=== PATIENT | male | born 1975 | race Caucasian/White ===

== ENCOUNTER 2016-12-30 12:27 | Emergency (ER) | payer BC ==
[2016-12-30] MEDS ORDERED: ASPIRIN 81 MG TABLET, CHEWABLE PO ONE (12:49)
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
[2016-12-30 13:16] LABS: ABSOLUTE BASOPHILS # (AUTO) 0.1 10^3/uL (0.0-0.2); ABSOLUTE EOSINOPHILS # (AUTO) 0.1 10^3/uL (0.0-0.6); ABSOLUTE LYMPHOCYTES (AUTO) 2.7 10^3/uL (0.5-4.7); ABSOLUTE MONOCYTES (AUTO) 1.2 10^3/uL (0.1-1.4); ABSOLUTE NEUT (AUTO) 5.8 10^3/uL (1.7-8.2); BASOPHILS % (AUTO) 0.6 % (0-2); EOSINOPHILS % (AUTO) 0.6 % (0-6); HEMATOCRIT 46.6 % (37.9-51.0); HGB HCT DIFFERENCE 1.4; LYMPHOCYTES % (AUTO) 27.2 % (13-45); MEAN CORPUSCULAR HEMOGLOBIN 32.5 pg (27.0-33.4); MEAN CORPUSCULAR HGB CONC 34.3 g/dL (32.0-36.0); MEAN CORPUSCULAR VOLUME 95 fl (80-97); MONOCYTES % (AUTO) 12.5 % (3-13); RED BLOOD COUNT 4.93 10^6/uL (4.35-5.55); RED CELL DISTRIBUTION WIDTH 13.5 % (11.5-14.0); SEGMENTED NEUTROPHILS % (AUTO) 59.1 % (42-78); WHITE BLOOD COUNT 9.9 10^3/uL (4.0-10.5)
[2016-12-30 13:21] LABS: PROTHROMBIN TIME 12.2 SEC (11.4-15.4)
[2016-12-30 13:35] LABS: ALANINE AMINOTRANSFERASE 93 U/L (21-72); ALBUMIN 4.5 g/dL (3.5-5.0); ALKALINE PHOSPHATASE 91 U/L (38-126); ANION GAP 12 (5-19); ASPARTATE AMINO TRANSFERASE 51 U/L (17-59); BILIRUBIN,DIRECT 0.4 mg/dL (0.0-0.4); BILIRUBIN,TOTAL 0.6 mg/dL (0.2-1.3); BLOOD UREA NITROGEN 9 mg/dL (7-20); CALCIUM 10.3 mg/dL (8.4-10.2); CARBON DIOXIDE 26 mmol/L (22-30); CHLORIDE 100 mmol/L (98-107); CREATINE KINASE 233 U/L (55-170); CREATININE RESULT 0.83 mg/dL (0.52-1.25); GLUCOSE 173 mg/dL (75-110); LIPASE 76.6 U/L (23-300); MAGNESIUM 1.9 mg/dL (1.6-2.3); POTASSIUM 4.6 mmol/L (3.6-5.0); SODIUM 137.9 mmol/L (137-145); TOTAL PROTEIN 7.1 g/dL (6.3-8.2)
[2016-12-30] MEDS ORDERED: LORAZEPAM 1 MG TABLET PO ONE (13:40)
[2016-12-30 13:53] LABS: CREATINE KINASE MB 1.63 ng/mL (<4.55)
[2016-12-30 13:55] LABS: TROPONIN I < 0.012 ng/mL
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
[2016-12-30 15:13] VITALS: BP 149/100
--- NOTE | 2016-12-30 21:34 | EKG REPORT ---
SEVERITY:- OTHERWISE NORMAL ECG - SINUS TACHYCARDIA : Confirmed by: Nabil Carpio 30-Dec-2016 21:34:02
== END 2016-12-30 15:11 | disposition home or self-care (01) ==
LOC: ER 12:27
DX: F41.9 Anxiety disorder, unspecified (principal); R06.02 Shortness of breath; R00.0 Tachycardia, unspecified; I10 Essential (primary) hypertension
CPT/HCPCS: 36415; 71020; 80053; 82550; 82553; 83690; 83735; 84484; 85025; 85379; 85610; 93005; 93010; 99285

== ENCOUNTER 2018-08-27 07:37 | Inpatient (IN) | payer BC ==
[2018-08-27] MEDS ORDERED: MORPHINE SULFATE 10 MG/ML INJ IV ONE (07:42)
[2018-08-27] MEDS ORDERED: NORMAL SALINE 1000 ML 1,000 ML IV ONE ×2 (07:47→09:34)
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
[2018-08-27] MEDS ORDERED: FENTANYL CITRATE INJ/PF 100 MCG/2 ML AMPUL IV ONE (08:49)
[2018-08-27] MEDS ORDERED: KETOROLAC TROMETHAMINE INJ/PF 30 MG/1 ML SDV IV ONE (08:49)
--- NOTE | 2018-08-27 08:58 | RADIOLOGY REPORT (SQ) ---
EXAM DESCRIPTION: CHEST 2 VIEWS COMPLETED DATE/TIME: 08/27/2018 8:45 am REASON FOR STUDY: LUQ/epigastric pain COMPARISON: 12/30/2016 EXAM PARAMETERS: NUMBER OF VIEWS: two views TECHNIQUE: Digital Frontal and Lateral radiographic views of the chest acquired. RADIATION DOSE: NA LIMITATIONS: none FINDINGS: LUNGS AND PLEURA: There is increased bandlike atelectasis or scarring of the right middle lobe and volume loss. MEDIASTINUM AND HILAR STRUCTURES: No masses or contour abnormalities. HEART AND VASCULAR STRUCTURES: Heart normal size. No evidence for failure. BONES: No acute findings. HARDWARE: None in the chest. OTHER: No other significant finding. IMPRESSION: There is increased bandlike atelectasis or scarring of the right middle and associated v olume loss. There is no definite airspace opacity. TECHNICAL DOCUMENTATION: JOB ID: [id number] [employer]- All Rights Reserved Reading location - IP/workstation name: [email or web address]
[2018-08-27 09:41] LABS: APPEARANCE,URINE CLEAR; BILIRUBIN,URINE NEGATIVE (NEGATIVE); COLOR,URINE YELLOW; GLUCOSE, URINE >=500 mg/dL (NEGATIVE); KETONES,URINE 20 mg/dL (NEGATIVE); LEUKOCYTE ESTERASE,URINE NEGATIVE (NEGATIVE); NITRITE,URINE NEGATIVE (NEGATIVE); PROTEIN,URINE NEGATIVE (NEGATIVE); URINE SPECIFIC GRAVITY 1.025; UROBILINOGEN,URINE NEGATIVE mg/dL (<2.0)
[2018-08-27] MEDS ORDERED: HYDROMORPHONE HCL INJ/PF 2 MG/ML AMPULE IV ONE ×2 (11:33→14:59)
[2018-08-27 11:59] LABS: ALANINE AMINOTRANSFERASE 36 U/L (21-72); ALBUMIN 3.8 g/dL (3.5-5.0); ALKALINE PHOSPHATASE 62 U/L (38-126); ANION GAP 11 (5-19); ASPARTATE AMINO TRANSFERASE 25 U/L (17-59); BILIRUBIN,DIRECT 0.4 mg/dL (0.0-0.4); BLOOD UREA NITROGEN 9 mg/dL (7-20); CALCIUM 8.9 mg/dL (8.4-10.2); CARBON DIOXIDE 24 mmol/L (22-30); CHLORIDE 96 mmol/L (98-107); CREATINE KINASE 143 U/L (55-170); GLUCOSE 263 mg/dL (75-110); POTASSIUM 4.5 mmol/L (3.6-5.0); SODIUM 130.6 mmol/L (137-145); TOTAL PROTEIN 5.9 g/dL (6.3-8.2)
[2018-08-27 12:11] LABS: LIPASE 2003.9 U/L (23-300)
[2018-08-27 12:20] LABS: ABSOLUTE LYMPHOCYTES (AUTO) 1.8 10^3/uL (0.5-4.7); ABSOLUTE MONOCYTES (AUTO) 1.3 10^3/uL (0.1-1.4); BASOPHILS % (AUTO) 0.4 % (0-2); EOSINOPHILS % (AUTO) 0.2 % (0-6); HEMATOCRIT 50.3 % (37.9-51.0); HEMOGLOBIN 17.9 g/dL (13.5-17.0); LYMPHOCYTES % (AUTO) 19.5 % (13-45); MEAN CORPUSCULAR HEMOGLOBIN 34.3 pg (27.0-33.4); MEAN CORPUSCULAR HGB CONC 35.6 g/dL (32.0-36.0); MEAN CORPUSCULAR VOLUME 96 fl (80-97); MONOCYTES % (AUTO) 13.9 % (3-13); PLATELET COUNT 188 10^3/uL (150-450); RED BLOOD COUNT 5.22 10^6/uL (4.35-5.55); RED CELL DISTRIBUTION WIDTH 13.4 % (11.5-14.0); TOTAL CELLS COUNTED % (AUTO) 100 %; WHITE BLOOD COUNT 9.1 10^3/uL (4.0-10.5)
[2018-08-27 12:25] LABS: CREATINE KINASE MB 0.53 ng/mL (<4.55)
[2018-08-27 12:27] LABS: TROPONIN I < 0.012 ng/mL
--- NOTE | 2018-08-27 12:59 | RADIOLOGY REPORT (SQ) ---
EXAM DESCRIPTION: CT ABD/PELVIS WITH IV ORAL COMPLETED DATE/TIME: 08/27/2018 12:34 pm REASON FOR STUDY: abd flank pain/ hx of bowel obstruction COMPARISON: CT abdomen pelvis, 10/02/2014 TECHNIQUE: CT scan of the abdomen and pelvis performed using helical scanning technique with dynamic intravenous contrast injection. No oral contrast. Images reviewed with lung, soft tissue, and bone windows. Reconstructed coronal and sagittal MPR images reviewed. Delayed images for evaluation of the urinary system also acquired. All images stored on PACS. All CT scanners at this facility use dose modulation, iterative reconstruction, and/or weight based d osing when appropriate to reduce radiation dose to as low as reasonably achievable (ALARA). [facility]: Dose Right [facility]: CareDose [facility]: Dose Right [facility]: Teradose 4D [facility]: [facility] CONTRAST TYPE AND DOSE: contrast/concentration: Isovue 350.00 mg/ml; Total Contrast Delivered: 100.0 ml; Total Saline Delivered: 43.7 ml RENAL FUNCTION: None required. The patient is less than 50 years old. RADIATION DOSE: CT Rad equipment meets quality standard of care and radiation dose reduction techniq ues were employed. CTDIvol: 19.9 - 21.0 mGy. DLP: 2380 mGy-cm.. LIMITATIONS: None. FINDINGS: LOWER CHEST: No significant findings. Bibasilar atelectasis. LIVER: There is heterogeneous hypodensity of the lateral right lobe of the liver. SPLEEN: Surgically absent. PANCREAS: There is significant inflammation and fat stranding about the pancreatic body and tail. GALLBLADDER: Gallstones. No inflammatory changes to suggest cholecystitis. ADRENAL GLANDS: No significant masses or asymmetry. RIGHT KIDNEY AND URETER: No solid masses. No significant calcifications. No hydronephrosis or hyd roureter. LEFT KIDNEY AND URETER: No solid masses. No significant calcifications. No hydronephrosis or hydr oureter. AORTA AND VESSELS: No aneurysm. No dissection. Renal arteries, SMA, celiac without stenosis. RETROPERITONEUM: No retroperitoneal adenopathy, hemorrhage or masses. BOWEL AND PERITONEAL CAVITY: No masses or inflammatory changes. No free fluid or peritoneal masses. Status post rectosigmoid resection with evidence of prior left lower quadrant ostomy. APPENDIX: Normal. PELVIS: No mass. No free fluid. Normal bladder. ABDOMINAL WALL: No masses. No hernias. BONES: No significant or acute findings. OTHER: No other significant finding. IMPRESSION: 1. There is significant inflammation and fat stranding about the pancreatic body and ginny l, consistent with acute pancreatitis. No evidence of discrete pancreatic fluid collection or pancre atic necrosis on this non tailored examination. 2. Cholelithiasis. 3. There is heterogeneous hypodensity of the lateral right lobe of the liver, of uncertain nature. U nderlying mass is not excluded. Consider multiphasic liver protocol MRI to further evaluate. 4. Postoperative findings of prior rectosigmoid resection with evidence of prior left lower quadrant ostomy. TECHNICAL DOCUMENTATION: JOB ID: [id number] Quality ID # [id number]: Final reports with documentation of one or more dose reduction techniques (e.g., Au tomated exposure control, adjustment of the mA and/or kV according to patient size, use of iterative reconstruction technique) 2010 [employer]- All Rights Reserved Reading location - IP/workstation name: [email or web address]
--- NOTE | 2018-08-27 13:39 | EKG REPORT ---
SEVERITY:- BORDERLINE ECG - SINUS TACHYCARDIA BORDERLINE T ABNORMALITIES, INFERIOR LEADS : Confirmed by: Judi Montenegro MD 27-Aug-2018 13:38:33
[2018-08-27] MEDS ORDERED: NORMAL SALINE 1000 ML 1,000 ML IV PRN (14:27)
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
[2018-08-27] MEDS ORDERED: ONDANSETRON HCL INJ/PF 4 MG/2 ML SDV IV PRN (15:05)
[2018-08-27] MEDS ORDERED: ENOXAPARIN SODIUM INJ 40 MG/0.4 ML DISP.SYRIN SUBCUT ONE (17:00)
[2018-08-27] MEDS: MORPHINE SULFATE 10 MG/ML INJ IV PRN ×2 (18:20→23:53)
[2018-08-27] MEDS ORDERED: LORAZEPAM INJ 2 MG/1 ML VIAL IV ONE ×2 (19:47)
[2018-08-27] MEDS ORDERED: LORAZEPAM INJ 2 MG/1 ML VIAL IV PRN (19:48)
[2018-08-27] MEDS: NORMAL SALINE 1000 ML 1,000 ML IV PRN (21:37)
[2018-08-27 23:03] LABS: URINE AMPHETAMINES SCREEN NEGATIVE; URINE BARBITURATES SCREEN NEGATIVE; URINE COCAINE SCREEN NEGATIVE; URINE MARIJUANA (THC) SCREEN NEGATIVE; URINE METHADONE SCREEN NEGATIVE; URINE PHENCYCLIDINE SCREEN NEGATIVE
[2018-08-27 23:07] LABS: URINE BENZODIAZEPINES SCREEN UNCONFIRMED POSITIVE
[2018-08-27] MEDS: THIAMINE HCL 100 MG, FOLIC ACID 1 MG in NORMAL SALINE 250 ML IV SCH (23:12)
[2018-08-28] MEDS: MORPHINE SULFATE 10 MG/ML INJ IV PRN ×5 (04:17→21:03)
[2018-08-28] MEDS: ACETAMINOPHEN 325 MG TABLET PO PRN ×2 (06:17→15:40)
[2018-08-28] MEDS: NORMAL SALINE 1000 ML 1,000 ML IV PRN ×3 (06:19→18:19)
[2018-08-28 06:25] LABS: ABSOLUTE BASOPHILS # (AUTO) 0.1 10^3/uL (0.0-0.2); ABSOLUTE LYMPHOCYTES (AUTO) 1.6 10^3/uL (0.5-4.7); ABSOLUTE NEUT (AUTO) 8.7 10^3/uL (1.7-8.2); BASOPHILS % (AUTO) 0.5 % (0-2); EOSINOPHILS % (AUTO) 0.3 % (0-6); HEMATOCRIT 50.2 % (37.9-51.0); HEMOGLOBIN 17.5 g/dL (13.5-17.0); LYMPHOCYTES % (AUTO) 12.8 % (13-45); MEAN CORPUSCULAR HEMOGLOBIN 33.8 pg (27.0-33.4); MEAN CORPUSCULAR HGB CONC 34.8 g/dL (32.0-36.0); MEAN CORPUSCULAR VOLUME 97 fl (80-97); MONOCYTES % (AUTO) 16.3 % (3-13); PLATELET COUNT 175 10^3/uL (150-450); RED BLOOD COUNT 5.17 10^6/uL (4.35-5.55); RED CELL DISTRIBUTION WIDTH 14.1 % (11.5-14.0); SEGMENTED NEUTROPHILS % (AUTO) 70.1 % (42-78); TOTAL CELLS COUNTED % (AUTO) 100 %; WHITE BLOOD COUNT 12.4 10^3/uL (4.0-10.5)
[2018-08-28 06:45] LABS: ALANINE AMINOTRANSFERASE 27 U/L (21-72); ALBUMIN 3.4 g/dL (3.5-5.0); ALKALINE PHOSPHATASE 57 U/L (38-126); ANION GAP 9 (5-19); ASPARTATE AMINO TRANSFERASE 24 U/L (17-59); BILIRUBIN,DIRECT 0.7 mg/dL (0.0-0.4); BILIRUBIN,TOTAL 2.7 mg/dL (0.2-1.3); BLOOD UREA NITROGEN 9 mg/dL (7-20); CALCIUM 8.4 mg/dL (8.4-10.2); CARBON DIOXIDE 21 mmol/L (22-30); CHLORIDE 104 mmol/L (98-107); GLUCOSE 230 mg/dL (75-110); POTASSIUM 4.3 mmol/L (3.6-5.0); SODIUM 133.7 mmol/L (137-145); TOTAL PROTEIN 5.5 g/dL (6.3-8.2)
[2018-08-28 09:12] LABS: ARTERIAL BLOOD BASE EXCESS 0.7 mmol/L; ARTERIAL BLOOD H2CO3 1.16 mmol/L (1.05-1.35); ARTERIAL BLOOD HCO3 24.8 mmol/L (20-24); ARTERIAL BLOOD O2 SATURATION 91.6 % (94-98); ARTERIAL BLOOD PCO2 38.4 mmHg (35-45); ARTERIAL BLOOD PH 7.43 (7.35-7.45); ARTERIAL BLOOD PO2 59.6 mmHg (80-100)
[2018-08-28 09:14] LABS: ARTERIAL BLOOD FIO2 2L
[2018-08-28] MEDS: ENOXAPARIN SODIUM INJ 40 MG/0.4 ML DISP.SYRIN SUBCUT SCH (09:47)
[2018-08-28] MEDS: DIAZEPAM 5 MG TABLET PO SCH ×3 (09:48→21:03)
--- NOTE | 2018-08-28 13:26 | PDOC PROGRESS REPORT ---
Subjective Progress Note for:: 08/28/18 Subjective:: This is a 42 years old male patient presented with chief complaint of epigastric and right upper quadrant pain. His blood work shows at admission markedly elevated lipase of 2000 and mildly elevated liver chemistries. Patient has been managed with aggressive hydration, bowel rest and pain control. Yesterday night he had an episode of low-grade fever of 101.8 and this morning his white cell count is mildly elevated to 12.4. His lipase trended down to 642. His liver enzymes also trending down. I consulted Dr. Obando to evaluate this patient since he has cholelithiasis which may contribute to his pancreatitis. Reason For Visit: ACUTE ON CHRONIC PANCREATITIS Physical Exam Vital Signs: Temp Pulse Resp BP Pulse Ox 99.2 F 104 H 18 137/76 H 93 08/28/18 07:23 08/28/18 07:58 08/28/18 07:23 08/28/18 07:23 08/28/18 07:23 Intake & Output 08/27/18 08/28/18 08/29/18 06:59 06:59 06:59 Intake Total 4061.2 1000 Output Total 0 Balance 4061.2 1000 Weight 124.7 kg General appearance: PRESENT: no acute distress Eye exam: PRESENT: conjunctiva pink Mouth exam: PRESENT: dry mucosa Neck exam: ABSENT: carotid bruit, JVD, lymphadenopathy, thyromegaly Respiratory exam: PRESENT: clear to auscultation ayesha. ABSENT: rales, rhonchi, wheezes Cardiovascular exam: PRESENT: RRR. ABSENT: diastolic murmur, rubs, systolic murmur GI/Abdominal exam: PRESENT: normal bowel sounds, soft. ABSENT: distended, guarding, mass, organolmegaly, rebound, tenderness Neurological exam: PRESENT: alert, awake, oriented to time, oriented to situation Results Laboratory Results: 08/28/18 06:15 08/28/18 06:15 08/27/18 08/28/18 08/28/18 15:55 06:15 06:15 WBC 12.4 H RBC 5.17 Hgb 17.5 H Hct 50.2 MCV 97 MCH 33.8 H MCHC 34.8 RDW 14.1 H Plt Count 175 Seg Neutrophils % 70.1 Lymphocytes % 12.8 L Monocytes % 16.3 H Eosinophils % 0.3 Basophils % 0.5 Absolute Neutrophils 8.7 H Absolute Lymphocytes 1.6 Absolute Monocytes 2.0 H Absolute Eosinophils 0.0 Absolute Basophils 0.1 Carbonic Acid HCO3/H2CO3 Ratio ABG pH ABG pCO2 ABG pO2 ABG HCO3 ABG O2 Saturation ABG Base Excess FiO2 Sodium 133.7 L Potassium 4.3 Chloride 104 Carbon Dioxide 21 L Anion Gap 9 BUN 9 Creatinine 0.68 Est GFR ( Amer) > 60 Est GFR (Non-Af Amer) > 60 Glucose 230 H Lactic Acid 1.3 Calcium 8.4 Total Bilirubin 2.7 H AST 24 ALT 27 Alkaline Phosphatase 57 Total Protein 5.5 L Albumin 3.4 L Lipase 642.0 H 08/28/18 08:54 WBC RBC Hgb Hct MCV MCH MCHC RDW Plt Count Seg Neutrophils % Lymphocytes % Monocytes % Eosinophils % Basophils % Absolute Neutrophils Absolute Lymphocytes Absolute Monocytes Absolute Eosinophils Absolute Basophils Carbonic Acid 1.16 HCO3/H2CO3 Ratio 21:1 ABG pH 7.43 ABG pCO2 38.4 ABG pO2 59.6 L ABG HCO3 24.8 H ABG O2 Saturation 91.6 L ABG Base Excess 0.7 FiO2 2L Sodium Potassium Chloride Carbon Dioxide Anion Gap BUN Creatinine Est GFR ( Amer) Est GFR (Non-Af Amer) Glucose Lactic Acid Calcium Total Bilirubin AST ALT Alkaline Phosphatase Total Protein Albumin Lipase 08/27/18 08/27/18 08/27/18 08:10 08:10 11:00 Creatine Kinase Cancelled 143 CK-MB (CK-2) Cancelled Troponin I Cancelled 08/27/18 08/27/18 11:10 11:59 Creatine Kinase CK-MB (CK-2) 0.53 Troponin I < 0.012 Cancelled Impressions: Abdomen/Pelvis CT 08/27/18 00:00 IMPRESSION: 1. There is significant inflammation and fat stranding about the pancreatic body and tail, consistent with acute pancreatitis. No evidence of discrete pancreatic fluid collection or pancreatic necrosis on this non tailored examination. 2. Cholelithiasis. 3. There is heterogeneous hypodensity of the lateral right lobe of the liver, of uncertain nature. Underlying mass is not excluded. Consider multiphasic liver protocol MRI to further evaluate. 4. Postoperative findings of prior rectosigmoid resection with evidence of prior left lower quadrant ostomy. Chest X-Ray 08/27/18 08:09 IMPRESSION: There is increased bandlike atelectasis or scarring of the right middle and associated volume loss. There is no definite airspace opacity. Assessment & Plan - Diagnosis (1) Acute on chronic pancreatitis Is this a current diagnosis for this admission?: Yes Plan: Alcohol induced. We will keep the patient n.p.o. and hydrate him aggressively. Pain controlled with morphine sulfate. Patient strongly advised to avoid alcohol. (2) Obstructive sleep apnea Is this a current diagnosis for this admission?: Yes Plan: Repeat on CPAP at night. (3) Hypertension Qualifiers: Hypertension type: essential hypertension Qualified Code(s): I10 - Essential (primary) hypertension Is this a current diagnosis for this admission?: Yes Plan: Continue home medications. (4) Severe obesity (BMI 35.0-39.9) with comorbidity Is this a current diagnosis for this admission?: Yes Plan: Patient advised to do lifestyle modification. (5) Cholelithiasis Is this a current diagnosis for this admission?: Yes Plan: Dr. Obando consulted.
[2018-08-28] MEDS ORDERED: ONDANSETRON HCL INJ/PF 4 MG/2 ML SDV IV PRN (14:30)
--- NOTE | 2018-08-28 15:43 | RADIOLOGY REPORT (SQ) ---
EXAM DESCRIPTION: U/S ABDOMEN COMPLETE W/O DOP COMPLETED DATE/TIME: 08/28/2018 3:22 pm REASON FOR STUDY: Cholelithiasis/pancreatitis COMPARISON: 08/27/2018 TECHNIQUE: Dynamic and static grayscale images acquired of the abdomen and recorded on PACS. Teenao elizabeth selected color Doppler and spectral images recorded. Note: Study does not meet criteria for complete doppler/duplex scan LIMITATIONS: Limited exam secondary to body habitus. . FINDINGS: PANCREAS: Not visualized. LIVER: Not well visualized. Heterogeneous echotexture. LIVER VASCULATURE: Normal directional flow of the main portal vein and hepatic veins. GALLBLADDER: Cholelithiasis. Normal wall thickness. No pericholecystic fluid. ULTRASOUND-DETECTED FLANAGAN'S SIGN: Negative. INTRAHEPATIC DUCTS AND COMMON DUCT: CBD and intrahepatic ducts normal caliber. No filling defects. INFERIOR VENA CAVA: Not visualized. AORTA: Not visualized. RIGHT KIDNEY: Normal in size measuring 14.2 cm. Normal echogenicity. No solid or suspicious mass es. No hydronephrosis. No calcifications. LEFT KIDNEY: Normal in size measuring 14.2 cm. Normal echogenicity. No solid or suspicious kuldeep s. No hydronephrosis. No calcifications. SPLEEN: Surgically absent. PERITONEAL AND PLEURAL SPACES: No ascites or effusions. OTHER: No other significant finding. IMPRESSION: Limited exam secondary to body habitus and bowel gas. Cholelithiasis without evidence of acute cholecystitis. TECHNICAL DOCUMENTATION: JOB ID: [id number] [employer]- All Rights Reserved Reading location - IP/workstation name: [email or web address]
[2018-08-28] MEDS: PIPERACILLIN SODIUM/TAZOBACTAM 3.375 GM in NORMAL SALINE 100 ML IV SCH ×2 (15:54→21:03)
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
[2018-08-28] MEDS ORDERED: NORMAL SALINE 1000 ML 1,000 ML IV ONE (16:15)
[2018-08-28] MEDS: THIAMINE HCL 100 MG, FOLIC ACID 1 MG in NORMAL SALINE 250 ML IV SCH (22:24)
[2018-08-29] MEDS: NORMAL SALINE 1000 ML 1,000 ML IV PRN ×4 (01:06→18:35)
[2018-08-29] MEDS: MORPHINE SULFATE 10 MG/ML INJ IV PRN ×6 (01:06→21:32)
[2018-08-29] MEDS: PIPERACILLIN SODIUM/TAZOBACTAM 3.375 GM in NORMAL SALINE 100 ML IV SCH ×4 (03:14→21:31)
[2018-08-29] MEDS: DIAZEPAM 5 MG TABLET PO SCH ×4 (03:15→21:32)
[2018-08-29 06:35] LABS: HEMATOCRIT 45.1 % (37.9-51.0); HEMOGLOBIN 15.6 g/dL (13.5-17.0); MEAN CORPUSCULAR HEMOGLOBIN 33.8 pg (27.0-33.4); MEAN CORPUSCULAR HGB CONC 34.5 g/dL (32.0-36.0); MEAN CORPUSCULAR VOLUME 98 fl (80-97); PLATELET COUNT 155 10^3/uL (150-450); RED CELL DISTRIBUTION WIDTH 13.8 % (11.5-14.0); WHITE BLOOD COUNT 10.8 10^3/uL (4.0-10.5)
[2018-08-29 06:42] LABS: ANION GAP 10 (5-19); BLOOD UREA NITROGEN 9 mg/dL (7-20); CARBON DIOXIDE 21 mmol/L (22-30); CHLORIDE 108 mmol/L (98-107); GLUCOSE 179 mg/dL (75-110)
[2018-08-29 07:26] LABS: ABSOLUTE LYMPHOCYTES# (MANUAL) 1.7 10^3/uL (0.5-4.7); ABSOLUTE MONOCYTES # (MANUAL) 2.7 10^3/uL (0.1-1.4); ABSOLUTE NEUTROPHILS# (MANUAL) 6.4 10^3/uL (1.7-8.2); BAND NEUTROPHILS % (MANUAL) 1 % (3-5); BASOPHILS % (MANUAL) 0 % (0-2); EOSINOPHILS % (MANUAL) 0 % (0-6); LYMPHOCYTES % (MANUAL) 16 % (13-45); SEGMENTED NEUTROPHILS % (MAN) 58 % (42-78); TOTAL CELLS COUNTED 100
[2018-08-29 07:27] LABS: PLATELET COMMENT ADEQUATE; RBC MORPHOLOGY COMMENT NORMO-CYTIC/CHROMIC
[2018-08-29] MEDS: ENOXAPARIN SODIUM INJ 40 MG/0.4 ML DISP.SYRIN SUBCUT SCH (09:35)
--- NOTE | 2018-08-29 10:33 | PDOC PROGRESS REPORT ---
Subjective Progress Note for:: 08/29/18 Subjective:: feeling better, less abd pain Reason For Visit: ACUTE ON CHRONIC PANCREATITIS Physical Exam Vital Signs: Temp Pulse Resp BP Pulse Ox 99.0 F 102 H 24 H 144/85 H 96 08/29/18 08:12 08/29/18 08:12 08/29/18 08:12 08/29/18 08:12 08/29/18 08:12 Intake & Output 08/28/18 08/29/18 08/30/18 06:59 06:59 06:59 Intake Total 4061.2 5551.2 100 Output Total 0 2250 Balance 4061.2 3301.2 100 Weight 124.7 kg 126.2 kg GI/Abdominal exam: PRESENT: soft - abd soft, non tender Results Laboratory Results: 08/29/18 05:13 08/29/18 05:13 08/29/18 08/29/18 05:13 05:13 WBC 10.8 H RBC 4.60 Hgb 15.6 Hct 45.1 MCV 98 H MCH 33.8 H MCHC 34.5 RDW 13.8 Plt Count 155 Seg Neutrophils % Not Reportable Lymphocytes % Not Reportable Monocytes % Not Reportable Eosinophils % Not Reportable Basophils % Not Reportable Absolute Neutrophils Not Reportable Absolute Lymphocytes Not Reportable Absolute Monocytes Not Reportable Absolute Eosinophils Not Reportable Absolute Basophils Not Reportable Sodium 139.0 Potassium 4.0 Chloride 108 H Carbon Dioxide 21 L Anion Gap 10 BUN 9 Creatinine 0.73 Est GFR ( Amer) > 60 Est GFR (Non-Af Amer) > 60 Glucose 179 H Calcium 8.0 L Lipase 254.0 08/27/18 08/27/18 08/27/18 08:10 08:10 11:00 Creatine Kinase Cancelled 143 CK-MB (CK-2) Cancelled Troponin I Cancelled 08/27/18 08/27/18 11:10 11:59 Creatine Kinase CK-MB (CK-2) 0.53 Troponin I < 0.012 Cancelled Impressions: Abdomen/Pelvis CT 08/27/18 00:00 IMPRESSION: 1. There is significant inflammation and fat stranding about the pancreatic body and tail, consistent with acute pancreatitis. No evidence of discrete pancreatic fluid collection or pancreatic necrosis on this non tailored examination. 2. Cholelithiasis. 3. There is heterogeneous hypodensity of the lateral right lobe of the liver, of uncertain nature. Underlying mass is not excluded. Consider multiphasic liver protocol MRI to further evaluate. 4. Postoperative findings of prior rectosigmoid resection with evidence of prior left lower quadrant ostomy. Chest X-Ray 08/27/18 08:09 IMPRESSION: There is increased bandlike atelectasis or scarring of the right middle and associated volume loss. There is no definite airspace opacity. Abdomen Ultrasound 08/28/18 00:00 IMPRESSION: Limited exam secondary to body habitus and bowel gas. Cholelithiasis without evidence of acute cholecystitis. Assessment & Plan - Plan Summary Plan Summary: resolving pancreatitis pt started on clear liquids diet by primary physician surgery will cont to follow.
--- NOTE | 2018-08-29 12:32 | PDOC PROGRESS REPORT ---
Subjective Subjective:: I seen patient resting in bed. Today patient's more awake and alert and conversant. He reports this is abdominal pain is easing. His lipase trended down further from 642-254. His diet advanced to clear liquid. Reason For Visit: ACUTE ON CHRONIC PANCREATITIS Physical Exam Vital Signs: Temp Pulse Resp BP Pulse Ox 99.0 F 102 H 24 H 144/85 H 96 08/29/18 08:12 08/29/18 08:12 08/29/18 08:12 08/29/18 08:12 08/29/18 08:12 Intake & Output 08/28/18 08/29/18 08/30/18 06:59 06:59 06:59 Intake Total 4061.2 5551.2 100 Output Total 0 2250 Balance 4061.2 3301.2 100 Weight 124.7 kg 126.2 kg General appearance: PRESENT: no acute distress Head exam: PRESENT: atraumatic Eye exam: PRESENT: conjunctiva pink Mouth exam: PRESENT: moist Neck exam: ABSENT: carotid bruit, JVD, lymphadenopathy, thyromegaly Respiratory exam: PRESENT: clear to auscultation ayesha. ABSENT: rales, rhonchi, wheezes Cardiovascular exam: PRESENT: RRR. ABSENT: diastolic murmur, rubs, systolic murmur GI/Abdominal exam: PRESENT: tenderness Neurological exam: PRESENT: alert, awake, oriented to time, oriented to situation Results Laboratory Results: 08/29/18 05:13 08/29/18 05:13 08/29/18 08/29/18 05:13 05:13 WBC 10.8 H RBC 4.60 Hgb 15.6 Hct 45.1 MCV 98 H MCH 33.8 H MCHC 34.5 RDW 13.8 Plt Count 155 Seg Neutrophils % Not Reportable Lymphocytes % Not Reportable Monocytes % Not Reportable Eosinophils % Not Reportable Basophils % Not Reportable Absolute Neutrophils Not Reportable Absolute Lymphocytes Not Reportable Absolute Monocytes Not Reportable Absolute Eosinophils Not Reportable Absolute Basophils Not Reportable Sodium 139.0 Potassium 4.0 Chloride 108 H Carbon Dioxide 21 L Anion Gap 10 BUN 9 Creatinine 0.73 Est GFR ( Amer) > 60 Est GFR (Non-Af Amer) > 60 Glucose 179 H Calcium 8.0 L Lipase 254.0 08/27/18 08/27/18 08/27/18 08:10 08:10 11:00 Creatine Kinase Cancelled 143 CK-MB (CK-2) Cancelled Troponin I Cancelled 08/27/18 08/27/18 11:10 11:59 Creatine Kinase CK-MB (CK-2) 0.53 Troponin I < 0.012 Cancelled Impressions: Abdomen/Pelvis CT 08/27/18 00:00 IMPRESSION: 1. There is significant inflammation and fat stranding about the pancreatic body and tail, consistent with acute pancreatitis. No evidence of discrete pancreatic fluid collection or pancreatic necrosis on this non tailored examination. 2. Cholelithiasis. 3. There is heterogeneous hypodensity of the lateral right lobe of the liver, of uncertain nature. Underlying mass is not excluded. Consider multiphasic liver protocol MRI to further evaluate. 4. Postoperative findings of prior rectosigmoid resection with evidence of prior left lower quadrant ostomy. Chest X-Ray 08/27/18 08:09 IMPRESSION: There is increased bandlike atelectasis or scarring of the right middle and associated volume loss. There is no definite airspace opacity. Abdomen Ultrasound 08/28/18 00:00 IMPRESSION: Limited exam secondary to body habitus and bowel gas. Cholelithiasis without evidence of acute cholecystitis. Assessment & Plan - Diagnosis (1) Acute on chronic pancreatitis Is this a current diagnosis for this admission?: Yes Plan: Resolving. I will continue hydration and pain control. His diet advanced to clear liquid. (2) Obstructive sleep apnea Is this a current diagnosis for this admission?: Yes Plan: Repeat on CPAP at night. (3) Hypertension Qualifiers: Hypertension type: essential hypertension Qualified Code(s): I10 - Essent ial (primary) hypertension Is this a current diagnosis for this admission?: Yes Plan: Continue home medications. (4) Severe obesity (BMI 35.0-39.9) with comorbidity Is this a current diagnosis for this admission?: Yes Plan: Patient advised to do lifestyle modification. (5) Cholelithiasis Is this a current diagnosis for this admission?: Yes Plan: Dr. Obando consulted. (6) Uncontrolled diabetes mellitus Qualifiers: Diabetes mellitus type: type 2 Is this a current diagnosis for this admission?: Yes Plan: His hemoglobin A1c is 9.2. There might be an element of noncompliance. I will reinforced diabetic education.
[2018-08-29] MEDS: ACETAMINOPHEN 325 MG TABLET PO PRN (15:53)
[2018-08-29] MEDS: THIAMINE HCL 100 MG, FOLIC ACID 1 MG in NORMAL SALINE 250 ML IV SCH (22:34)
[2018-08-30] MEDS: NORMAL SALINE 1000 ML 1,000 ML IV PRN ×2 (01:19→06:51)
[2018-08-30] MEDS: MORPHINE SULFATE 10 MG/ML INJ IV PRN ×2 (01:19→06:51)
[2018-08-30] MEDS: PIPERACILLIN SODIUM/TAZOBACTAM 3.375 GM in NORMAL SALINE 100 ML IV SCH ×2 (02:57→10:41)
[2018-08-30] MEDS: DIAZEPAM 5 MG TABLET PO SCH ×2 (02:58→10:41)
[2018-08-30 05:21] LABS: HEMATOCRIT 45.3 % (37.9-51.0); HEMOGLOBIN 15.7 g/dL (13.5-17.0); MEAN CORPUSCULAR HEMOGLOBIN 33.9 pg (27.0-33.4); MEAN CORPUSCULAR HGB CONC 34.7 g/dL (32.0-36.0); MEAN CORPUSCULAR VOLUME 98 fl (80-97); PLATELET COUNT 195 10^3/uL (150-450); RED BLOOD COUNT 4.64 10^6/uL (4.35-5.55); RED CELL DISTRIBUTION WIDTH 13.9 % (11.5-14.0); WHITE BLOOD COUNT 5.5 10^3/uL (4.0-10.5)
[2018-08-30 05:39] LABS: ABSOLUTE LYMPHOCYTES# (MANUAL) 1.9 10^3/uL (0.5-4.7); ABSOLUTE MONOCYTES # (MANUAL) 1.2 10^3/uL (0.1-1.4); ABSOLUTE NEUTROPHILS# (MANUAL) 2.1 10^3/uL (1.7-8.2); BAND NEUTROPHILS % (MANUAL) 1 % (3-5); BASOPHILS % (MANUAL) 0 % (0-2); EOSINOPHILS % (MANUAL) 5 % (0-6); LYMPHOCYTES % (MANUAL) 29 % (13-45); MONOCYTES % (MANUAL) 22 % (3-13); SEGMENTED NEUTROPHILS % (MAN) 38 % (42-78); TOTAL CELLS COUNTED 100
[2018-08-30 05:41] LABS: PLATELET LARGE PRESENT; POLYCHROMASIA 1+
[2018-08-30 05:42] LABS: PLATELET COMMENT ADEQUATE
[2018-08-30 10:09] LABS: MONOCYTES % (MANUAL) 25 % (3-13)
--- NOTE | 2018-08-30 10:34 | PDOC DISCHARGE SUMMARY ---
General - Admit/Disc Date/PCP Admission Date/Primary Care Provider: 08/27/18 16:56 SHANTA ZIMMERMAN MD Discharge Date: 08/30/18 - Discharge Diagnosis (1) Acute on chronic pancreatitis Is this a current diagnosis for this admission?: Yes (2) Obstructive sleep apnea Is this a current diagnosis for this admission?: Yes (3) Hypertension Is this a current diagnosis for this admission?: Yes (4) Severe obesity (BMI 35.0-39.9) with comorbidity Is this a current diagnosis for this admission?: Yes (5) Cholelithiasis Is this a current diagnosis for this admission?: Yes (6) Uncontrolled diabetes mellitus Is this a current diagnosis for this admission?: Yes - Additional Information Home Medications: Alprazolam [Xanax] 1 mg PO Q8HP PRN 08/27/18 Lisinopril [Prinivil 10 mg Tablet] 10 mg PO QHS 08/27/18 Metformin HCl [Metformin HCl ER] 500 mg PO BIDBS 08/27/18 Morphine Sulfate [Morphine Sulfate ER] 20 mg PO Q12 08/27/18 Oxycodone HCl/Acetaminophen [Percocet 10-325 mg Tablet] 1 tab PO Q12HP PRN 08/27/18 History of Present Illness History of Present Illness: LYNNETTE AYALA is a 42 year old male patient with past medical history of obstructive sleep apnea, morbid obesity and alcohol induced pancreatitis presents with chief complaint of epigastric pain radiating to his right upper quadrant. Patient reports this has been at his baseline state of health up until yesterday when he started to have the above-mentioned complaint. Patient has been sober for a while but during this whole day he drinks 7 beers and started to have abdominal pain. He CT scan of the abdomen is reported as there is significant inflammation and fat stranding about the pancreatic body and tail, consistent with acute pancreatitis. No evidence of discrete pancreatic fluid collection or pancreatic necrosis on this non-tailored examination. His lipase is greater than 2000. Patient denied any fever, chills, palpitation, diaphoresis, cough, chest pain. He has nausea but no vomiting. No diarrhea or urinary complaints. Hospital Course Hospital Course: This is a 42 years old male patient presented with chief complaint of epigastric and right upper quadrant pain. His blood work shows at admission markedly elevated lipase of 2000 and mildly elevated liver chemistries. Patient has been managed with aggressive hydration, bowel rest and pain control. On the second day of his admission patient had an episode of low-grade fever of 101.8 and his white cell count was mildly elevated to 12.4. His lipase trended down steadily and today on the day of discharge it is 144. His liver enzymes also trending down. I consulted Dr. Obando to evaluate this patient since he has cholelithiasis which may contribute to his pancreatitis. Dr. Cotto does not recommend any intervention at this time and he will follow him as outpatient. During his stay also evaluated his hemoglobin A1c and became 9.2. Patient used to be on Metformin which was discontinued for unknown reason. I will restarting metformin thousand milligrams twice a day. I have a long discussion with the patient is a consequence of recurrent pancreatitis and I counseled and encouraged him to acute alcohol. And he voices agreement. Morning I seen patient resting in bed comfortably he is not in pain or distress he is able to tolerate his meal. Physical Exam Vital Signs: Temp Pulse Resp BP Pulse Ox 98.9 F 85 22 H 134/85 H 95 08/30/18 08:36 08/30/18 08:36 08/30/18 08:36 08/30/18 08:36 08/30/18 08:36 Intake & Output 08/29/18 08/30/18 08/31/18 06:59 06:59 06:59 Intake Total 5551.2 5595.2 Output Total 2250 3125 Balance 3301.2 2470.2 Weight 126.2 kg 125.7 kg Results Laboratory Results: 08/30/18 04:46 08/29/18 05:13 08/30/18 08/30/18 04:46 04:46 WBC 5.5 RBC 4.64 Hgb 15.7 Hct 45.3 MCV 98 H MCH 33.9 H MCHC 34.7 RDW 13.9 Plt Count 195 Seg Neutrophils % Not Reportable Lymphocytes % Not Reportable Monocytes % Not Reportable Eosinophils % Not Reportable Basophils % Not Reportable Absolute Neutrophils Not Reportable Absolute Lymphocytes Not Reportable Absolute Monocytes Not Reportable Absolute Eosinophils Not Reportable Absolute Basophils Not Reportable Lipase 144.9 08/27/18 08/27/18 08/27/18 08:10 08:10 11:00 Creatine Kinase Cancelled 143 CK-MB (CK-2) Cancelled Troponin I Cancelled 08/27/18 08/27/18 11:10 11:59 Creatine Kinase CK-MB (CK-2) 0.53 Troponin I < 0.012 Cancelled Impressions: Abdomen/Pelvis CT 08/27/18 00:00 IMPRESSION: 1. There is significant inflammation and fat stranding about the pancreatic body and tail, consistent with acute pancreatitis. No evidence of discrete pancreatic fluid collection or pancreatic necrosis on this non tailored examination. 2. Cholelithiasis. 3. There is heterogeneous hypodensity of the lateral right lobe of the liver, of uncertain nature. Underlying mass is not excluded. Consider multiphasic liver protocol MRI to further evaluate. 4. Postoperative findings of prior rectosigmoid resection with evidence of prior left lower quadrant ostomy. Chest X-Ray 08/27/18 08:09 IMPRESSION: There is increased bandlike atelectasis or scarring of the right middle and associated volume loss. There is no definite airspace opacity. Abdomen Ultrasound 08/28/18 00:00 IMPRESSION: Limited exam secondary to body habitus and bowel gas. Cholelithiasis without evidence of acute cholecystitis. Qualifiers - * PATIENT BEING DISCHARGED WITH ANY OF THE FOLLOWING DIAGNOSIS: No
[2018-08-30] MEDS: ENOXAPARIN SODIUM INJ 40 MG/0.4 ML DISP.SYRIN SUBCUT SCH (10:41)
[2018-08-30 11:00] VITALS: BP 142/78
[2018-08-31 15:51] LABS: PATH REVIEW PATHOLOGIST REVIEWED
== END 2018-08-30 11:30 | disposition home or self-care (01) | DRG 439 ==
LOC: ER 07:37 → EH 16:56 → 3W 21:30
PROVIDERS: ADMIT Hospitalist; ATTEND Hospitalist
DX: K85.20 Alcohol induced acute pancreatitis without necrosis or infection (principal); K57.92 Diverticulitis of intestine, part unspecified, without perforation or abscess without bleeding; F10.188 Alcohol abuse with other alcohol-induced disorder; K86.0 Alcohol-induced chronic pancreatitis; K80.20 Calculus of gallbladder without cholecystitis without obstruction; E11.65 Type 2 diabetes mellitus with hyperglycemia; I10 Essential (primary) hypertension; G47.33 Obstructive sleep apnea (adult) (pediatric); E66.01 Morbid (severe) obesity due to excess calories; F17.210 Nicotine dependence, cigarettes, uncomplicated; Y90.9 Presence of alcohol in blood, level not specified; Z68.39 Body mass index [BMI] 39.0-39.9, adult; Z79.84 Long term (current) use of oral hypoglycemic drugs; Z79.1 Long term (current) use of non-steroidal anti-inflammatories (NSAID); Z79.899 Other long term (current) drug therapy
CPT/HCPCS: 36415; 71046; 74177; 76700; 80048; 80053; 80307; 81001; 82140; 82550; 82553; 82803; 82962; 83036; 83605; 83690; 84484; 85025; 87040; 93005; 93010; 96361; 96374; 96375; 96376; 99285; J1170; J1650; J1885; J2060; J2270; J2543; J3010; J3411; J3490; J7030; J7050